=== PATIENT | male | born 1990 | race Caucasian/White ===

== ENCOUNTER 2022-12-10 18:35 | Inpatient (IN) | payer OTHER ==
[~2022-12-10] VITALS: Ht 182.9 cm; Wt 131.5 kg
[2022-12-10] MEDS ORDERED: ASPIRIN 81 MG TAB.CHEW PO ONE (19:00)
[2022-12-10] MEDS ORDERED: ONDANSETRON ODT 4 MG TAB.RAPDIS SL ONE (19:00)
[2022-12-10] MEDS ORDERED: OXYCODONE/APAP 5-325 MG TABLET PO ONE ×2 (19:00→21:30)
[2022-12-10] MEDS ORDERED: ONDANSETRON ODT 4 MG TAB.RAPDIS ONE (19:06)
[2022-12-10] MEDS ORDERED: OXYCODONE/APAP 5-325 MG TABLET ONE (19:06)
[2022-12-10] MEDS ORDERED: ASPIRIN 81 MG TAB.CHEW ONE (19:06)
[2022-12-10 19:19] LABS: HEMATOCRIT 47.7 % (36.7-47.1); MEAN CORPUSCULAR HEMOGLOBIN 29.1 uug (23.8-33.4); MEAN CORPUSCULAR VOLUME 87.4 fL (73.0-96.2); PLATELET COUNT (AUTO) 267 K/uL (152-348)
[2022-12-10 19:26] LABS: CARBON DIOXIDE 29 mmol/L (21-32); CHLORIDE 103 mmol/L (98-107); CREATININE 0.8 mg/dL (0.6-1.3); GLUCOSE 137 mg/dL (74-106); POTASSIUM 3.5 mmol/L (3.5-5.1); UREA NITROGEN, BLOOD 11 mg/dL (7-18)
[2022-12-10 19:39] LABS: ALANINE AMINOTRANSFERASE 56 U/L (16-63); ALKALINE PHOSPHATASE 86 U/L (50-136); ASPARTATE AMINOTRANSFERASE 18 U/L (15-37); BILIRUBIN,DIRECT 0.1 mg/dL (0.0-0.2); BILIRUBIN,TOTAL 0.3 mg/dL (0.2-1.0)
[2022-12-10] MEDS ORDERED: LORAZEPAM 1 MG TABLET ONE (21:22)
[2022-12-10] MEDS ORDERED: HYDROCODONE/APAP 5-325MG TABLET ONE (21:23)
[2022-12-10] MEDS ORDERED: LORAZEPAM 0.5 MG TABLET PO ONE (21:30)
[2022-12-10] MEDS ORDERED: hydrALAZINE HCL 20 MG/1 ML VIAL IV PRN (22:30)
[2022-12-10] MEDS ORDERED: ACETAMINOPHEN 325 MG TABLET PO PRN (22:30)
[2022-12-10] MEDS ORDERED: ONDANSETRON 4 MG/2 ML VIAL IV PRN (22:30)
[2022-12-10] MEDS ORDERED: LABETALOL HCL 100 MG/20 ML VIAL IV PRN (22:30)
[2022-12-10 23:30] VITALS: BP 134/77
[2022-12-11] MEDS: MORPHINE SULFATE 2 MG/1 ML DISP.SYRIN IVP PRN (00:06)
[2022-12-11] MEDS: IV NS 1000 ML 1,000 ML IV SCH ×2 (00:06→11:49)
[2022-12-11 04:00] VITALS: BP 124/69
[2022-12-11 07:17] LABS: HEMATOCRIT 45.9 % (36.7-47.1); MEAN CORPUSCULAR HEMOGLOBIN 29.4 uug (23.8-33.4); MEAN CORPUSCULAR VOLUME 88.6 fL (73.0-96.2); PLATELET COUNT (AUTO) 242 K/uL (152-348)
[2022-12-11 07:39] LABS: BILIRUBIN,TOTAL 0.5 mg/dL (0.2-1.0); CREATININE 0.9 mg/dL (0.6-1.3); PHOSPHOROUS 4.4 mg/dL (2.5-4.9); TOTAL PROTEIN, SERUM 7.4 g/dL (6.4-8.2)
[2022-12-11 08:00] VITALS: BP 128/62
[2022-12-11] MEDS: DOCUSATE SODIUM 100 MG CAPSULE PO SCH ×2 (09:15→19:02)
[2022-12-11] MEDS: HEPARIN SODIUM,PORCINE 5,000 UNITS/ML VIAL SQ SCH ×2 (09:16→21:16)
[2022-12-11] MEDS: methylPREDNISolone SOD SUCC 40 MG/ML VIAL IV SCH ×2 (11:48→21:17)
[2022-12-11 12:00] VITALS: BP 120/69
[2022-12-11 16:00] VITALS: BP 135/77
[2022-12-11 17:40] LABS: THYROID STIMULATING HORMONE 2.753 mIU/mL (0.358-3.740)
[2022-12-12] MEDS: IV NS 1000 ML 1,000 ML IV SCH ×2 (00:07→11:44)
[2022-12-12 04:00] VITALS: BP 114/68
[2022-12-12] MEDS: MORPHINE SULFATE 2 MG/1 ML DISP.SYRIN IVP PRN ×2 (05:11→21:33)
[2022-12-12] MEDS: methylPREDNISolone SOD SUCC 40 MG/ML VIAL IV SCH ×2 (08:36→21:32)
[2022-12-12] MEDS: DOCUSATE SODIUM 100 MG CAPSULE PO SCH ×2 (08:36→17:27)
[2022-12-12] MEDS: HEPARIN SODIUM,PORCINE 5,000 UNITS/ML VIAL SQ SCH ×2 (08:37→21:31)
[2022-12-12 12:00] VITALS: BP 144/79
[2022-12-12] MEDS ORDERED: METH4TAB3 PO (12:22)
[2022-12-12] MEDS ORDERED: CITA10TA9 PO (12:22)
[2022-12-12 22:00] VITALS: BP 125/74
[2022-12-13 04:00] VITALS: BP 102/72
[2022-12-13] MEDS: MORPHINE SULFATE 2 MG/1 ML DISP.SYRIN IVP PRN (04:26)
[2022-12-13] MEDS: IV NS 1000 ML 1,000 ML IV SCH ×2 (04:27→12:28)
[2022-12-13] MEDS: HEPARIN SODIUM,PORCINE 5,000 UNITS/ML VIAL SQ SCH (08:26)
[2022-12-13] MEDS: methylPREDNISolone SOD SUCC 40 MG/ML VIAL IV SCH (08:26)
[2022-12-13] MEDS: DOCUSATE SODIUM 100 MG CAPSULE PO SCH (08:27)
[2022-12-13 11:37] VITALS: BP 125/61
== END 2022-12-13 13:30 | disposition home or self-care (01) | DRG 74 ==
LOC: ER 18:40 → MEDSURG3 23:19
PROVIDERS: ADMIT Internal Medicine; ATTEND Internal Medicine
DX: M54.12 Radiculopathy, cervical region (principal); N52.9 Male erectile dysfunction, unspecified; F41.9 Anxiety disorder, unspecified; R03.0 Elevated blood-pressure reading, without diagnosis of hypertension; M51.24 Other intervertebral disc displacement, thoracic region; M48.04 Spinal stenosis, thoracic region; S39.92XS Unspecified injury of lower back, sequela; X50.0XXS Overexertion from strenuous movement or load, sequela; M51.36 Other intervertebral disc degeneration, lumbar region; E66.9 Obesity, unspecified; Z68.39 Body mass index [BMI] 39.0-39.9, adult
CPT/HCPCS: 36415; 70030-TC; 70450; 71045; 72125; 72131; 72141; 72148; 82747; 84100; 84207; 84443; 84484; 85014; 85025; 85730; 93005; A4663; G0378; J1644; J2270; J2920; J7040; Q0162